=== PATIENT | female | born 1985 | race Caucasian/White ===

== ENCOUNTER 2016-12-19 15:07 | Day surgery (SDC) | payer BC, MEDICAID ==
[~2016-12-19] VITALS: Ht 165.1 cm; Wt 63.0 kg
[2016-12-19] VITALS (16 sets, daily range): BP systolic 107–123; BP diastolic 58–80; PULSE 53–80; RESP 10–29; Ht 165.1 cm; Wt 63.0 kg
[2016-12-19] MEDS ORDERED: PROPOFOL 20 ML ONE (16:46)
[2016-12-19] MEDS ORDERED: METOCLOPRAMIDE 10 MG INJ ONE (16:46)
[2016-12-19] MEDS ORDERED: MIDAZOLAM 1 MG/ML 2 ML INJ ONE (16:46)
[2016-12-19] MEDS ORDERED: ROPIVACAINE 0.5 % 30 ML VIAL ONE (17:45)
[2016-12-19] MEDS ORDERED: FENTAnyl 50 MCG/ML VIAL ONE (18:02)
[2016-12-19] MEDS ORDERED: HYDROmorphONE 2 MG/ML SYG ONE (18:37)
[2016-12-19] MEDS ORDERED: POLYMYXIN/BACITRACIN 1L IRRIG IRR ONE (18:50)
[2016-12-19] MEDS ORDERED: BACITRACIN/POLYMYXIN 28.35 GM OINT TOP ONE (19:07)
[2016-12-19] MEDS ORDERED: KETOROLAC 30 MG INJ ONE (19:20)
[2016-12-19] MEDS ORDERED: OXYCODONE/ACETAMINOPHEN (5/325) TAB PO PRN ×2 (19:30)
[2016-12-19] MEDS ORDERED: MEPERIDINE 25 MG INJ IV PRN (19:30)
[2016-12-19] MEDS ORDERED: HYDROmorphONE (0.2 MG/ML) 10ML SYG IV PRN ×2 (19:30)
[2016-12-19] MEDS ORDERED: EPHEDrine SULFATE 50 MG/5 ML SYG IV PRN (19:30)
[2016-12-19] MEDS ORDERED: DIPHENHYDRAMINE 50 MG INJ IV PRN (19:30)
[2016-12-19] MEDS ORDERED: ONDANSETRON 4 MG INJ IV PRN (19:30)
[2016-12-19] MEDS ORDERED: METOCLOPRAMIDE 10 MG INJ IV PRN (19:30)
[2016-12-19] MEDS: HYDROmorphONE (0.2 MG/ML) 10ML SYG IV PRN ×3 (19:51→20:09)
[2016-12-19] MEDS ORDERED: morphine 10 MG INJ IV PRN (20:00)
[2016-12-19] MEDS ORDERED: morphine 2 MG INJ IV PRN (20:00)
--- NOTE | 2016-12-19 20:00 | HPN ---
Date/Time of Note Date/Time of Note DATE: 12/19/16 TIME: 20:00 Interval H&P Admission Note Pt. seen H&P reviewed: No system changes CHEL HENRIQUEZ MD Dec 19, 2016 20:00
--- NOTE | 2016-12-19 20:11 | OPR ---
Date/Time of Note Date/Time of Note DATE: 12/19/16 TIME: 20:01 Operative Report Procedure Date: Dec 19, 2016 Preoperative Diagnosis 1. Right foot Lisfranc joint grade 3 ligamentous dislocation Postoperative Diagnosis 1. Right foot Lisfranc joint grade 3 ligamentous dislocation Operation Performed Right foot open reduction internal fixation of first and second tarsometatarsal joint Lisfranc joint dislocation Surgeon: CHEL HENRIQUEZ MD Anesthesia: general, other (Popliteal block) Tourniquet Time: 49 minutes at 250 mmHg Estimated Blood Loss: 0 - 10 ml's Grafts/Implants [employer] 32 x 3.7 mm screw Complications: None Pt Condition Post Procedure: stable Disposition: PACU Indications Patient is a 31-year-old female who sustained a right foot Lisfranc joint grade 3 ligamentous dislocation with a rupture of the dorsal, plantar, interosseous ligament and instability of her Lisfranc joint. Given the instability at this joint and the continuous pain patient is having patient was indicated for open reduction and internal fixation. Risk note: Patient was expand the risks and benefits of the surgery and the patient's tejon language including but not limited to infection, bleeding, injury to the blood vessels, nerves, ligaments and tendons, need for future surgery risk of anesthesia risk of arthritis risk of blood clot. Patient acknowledged these these risk by signing the surgical consent form. Operative\Procedure Findings Patient was met in the preoperative holding area and operative extremity was confirmed to be correct on both consent and with patient. Patient was given preoperative regional block anesthesia patient was then brought back to the surgical theater placed supine on the operative table given preoperative antibiotics. Patient was then prepped and draped in the normal sterile fashion and a timeout was taken and all parties in the room agreed is correct patient, extremity and procedure. Incision was confirmed on fluoroscopy and Esmarch was brought up to tourniquet of 250 mmHg. Incision was made over the first and second tarsometatarsal joint with care to avoid any injury to the neurovascular structures. The first and second tarsometatarsal joint was identified and found to be widened. Scar tissue that had a cannulated at the site was debrided and irrigated thoroughly. The first and second tarsometatarsal joint was then reduced with a tenaculum from the medial cuneiform to the base of the second metatarsal. Using a cannulated screw initially a screw was then drilled using lag screw technique and a 3.7 millimeter screw was then placed with countersink across from the medial cuneiform to the base of the second metatarsal. Under fluoroscopy the intermittent metatarsal space was shown to be closed down and reduce appropriately. There is found to be no instability at the intercuneiform joint or at the first and second tarsometatarsal joint or the second tarsometatarsal joint the foot was found to be well reduced. The wounds were irrigated thoroughly and closed in layers with 3-0 Monocryl followed by 4-0 nylon in vertical mattress fashion. The wounds were then dressed with Xeroform, triple antibiotic ointment and placed in a well-padded short leg splint. Patient was taken to the PACU in stable condition and all sponge and needle counts were correct. At the end the case the patient's foot was warm and well- perfused Patient remain nonweightbearing to the right lower extremity for the next 6 weeks CHEL HENRIQUEZ MD Dec 19, 2016 20:11
--- NOTE | 2016-12-20 10:02 | RADRPT ---
PROCEDURE: Intraoperative imaging of the right foot with fluoroscopy. CLINICAL INDICATION: Right foot pain. Intraoperative. TECHNIQUE: 12 images of the right foot were obtained in the operating room with an image intensifi er. No radiologist was in attendance. 44 seconds of fluoroscopy time was used. COMPARISON: No prior study is available for comparison. FINDINGS: Images demonstrate placement of a screw in the right foot medially. IMPRESSION: 1. Intraoperative imaging of the right foot. RPTAT: QQ .Esau Weber MD, MD Date Time Electronically viewed and signed by .Esau Weber MD, MD on 12/20/2016 10:02 .R/
== END 2016-12-19 21:12 | disposition home or self-care (01) ==
LOC: SDS 15:07
PROVIDERS: ATTEND Orthopaedic Surgery
DX: S93.324D Dislocation of tarsometatarsal joint of right foot, subsequent encounter (principal); X58.XXXD Exposure to other specified factors, subsequent encounter
CPT/HCPCS: 28615; 73630; 84703; J1170; J1885; J2175; J2250; J2405; J2765; J2795; J3010; Z7512; Z7610

== ENCOUNTER 2017-07-30 14:18 | Day surgery (SDC) | END 2017-07-30 21:30 | disposition home or self-care (01) ==